=== PATIENT | female | born 1970 | race Caucasian/White ===

== ENCOUNTER 2016-09-23 20:15 | Emergency (ER) | payer MEDICAID ==
[2016-09-23] MEDS ORDERED: METOCLOPRAMIDE HCL 5 MG/ML 2ML VIAL ONE (22:14)
[2016-09-23] MEDS ORDERED: KETOROLAC TROMETHAMINE 60 MG/2 ML VIAL ONE (22:14)
[2016-09-23] MEDS ORDERED: OLANZAPINE 5 MG TABLET ONE (22:15)
== END 2016-09-23 22:41 | disposition home or self-care (01) ==
LOC: ED 20:15
DX: M79.1 Myalgia (principal)
CPT/HCPCS: 99283 ×2; 96372 ×2; J2765; J1885; A9270